=== PATIENT | female | born 1990 | race Caucasian/White ===

== ENCOUNTER 2018-04-29 11:03 | Emergency (ER) | payer SELFPAY ==
[~2018-04-29] VITALS: Ht 167.6 cm; Wt 122.7 kg
[2018-04-29 11:14] VITALS: TEMP 98.8
[2018-04-29 12:02] LABS: BASO # 0.1 (0.0-0.2); BASO % 0.7 % (0.0-2.0); EOS # 0.3 (0.0-0.7); EOS % 1.9 % (0-4.0); GRAN # 9.5 (1.4-6.5); GRAN % 71.8 % (42.2-75.2); HEMATOCRIT 38.2 % (37.0-47.0); HEMOGLOBIN 12.5 g/dl (12.5-16.0); LYMPH # 2.4 (1.2-3.4); LYMPH % 17.9 % (20.0-51.0); MEAN CELL VOLUME 89 fl (80.0-100.0); MEAN CORPUSCULAR HEMOGLOBIN 29 pg (27.0-31.0); MEAN CORPUSCULAR HGB CONC 33 g/dl (33.0-37.0); MEAN PLATELET VOLUME 9.8 fl (7.4-10.4); MONO # 0.8 (0.1-0.6); MONO % 6.3 % (1.7-9.3); PLATELET COUNT 251 K/mm3 (130-400); REDCELL DISTRIBUTION WIDTH-CV 14.7 % (11.5-14.5)
[2018-04-29 12:09] LABS: ALBUMIN 3.5 gm/dL (3.5-5.0); BILIRUBIN,TOTAL 0.2 mg/dL (0.0-1.0); CALCIUM 9.1 mg/dL (8.4-10.2); CREATININE, serum 0.79 mg/dL (0.52-1.25); POTASSIUM 3.9 mmol/L (3.4-5.0); TOTAL PROTEIN 6.9 gm/dL (6.4-8.2)
[2018-04-29] MEDS ORDERED: LAMICTAL 100MG100 MG PO (12:32)
[2018-04-29] MEDS ORDERED: TOPAMAX50 MG PO (12:32)
[2018-04-29] MEDS ORDERED: WELLBUTRIN 100100 MG PO (12:33)
[2018-04-29] MEDS ORDERED: BUSPAR 30MG30 MG/TAB PO (12:33)
[2018-04-29] MEDS ORDERED: DESYREL DIVIDO150 M1 PO (12:33)
[2018-04-29] MEDS ORDERED: PRINIVIL20 MG PO (12:34)
[2018-04-29] MEDS ORDERED: RISPERDAL 1M1 MG/TAB PO (12:34)
[2018-04-29] MEDS ORDERED: LEVBID0.375 MG PO (12:36)
[2018-04-29] MEDS ORDERED: ZITHROMAX TRI-500 MG PO (13:49)
[2018-04-29] MEDS ORDERED: BENTYL 20MG20 MG/TAB PO (13:52)
[2018-04-29 13:57] VITALS: BP 124/67; PULSE 84
== END 2018-04-29 13:58 | disposition home or self-care (01) ==
LOC: COL.ER 11:03
PROVIDERS: Emergency Medicine
DX: R19.7 Diarrhea, unspecified (principal); I10 Essential (primary) hypertension; F31.9 Bipolar disorder, unspecified
CPT/HCPCS: J2405; J7030

== ENCOUNTER 2018-05-01 16:40 | Emergency (ER) | payer SELFPAY ==
[~2018-05-01] VITALS: Ht 167.6 cm; Wt 122.7 kg
[~2018-05-01 16:40] MED LIST: BENTYL 20MG20 MG/TAB PO; BUSPAR 30MG30 MG/TAB PO; DESYREL DIVIDO150 M1 PO; LAMICTAL 100MG100 MG PO; LEVBID0.375 MG PO; PRINIVIL20 MG PO; RISPERDAL 1M1 MG/TAB PO; TOPAMAX50 MG PO; WELLBUTRIN 100100 MG PO; ZITHROMAX TRI-500 MG PO
[2018-05-01 16:49] VITALS: TEMP 97.3
[2018-05-01 17:36] LABS: BASO # 0.1 (0.0-0.2); BASO % 0.6 % (0.0-2.0); EOS # 0.4 (0.0-0.7); GRAN # 9.8 (1.4-6.5); GRAN % 69.6 % (42.2-75.2); HEMATOCRIT 42.5 % (37.0-47.0); HEMOGLOBIN 13.5 g/dl (12.5-16.0); LYMPH # 2.7 (1.2-3.4); LYMPH % 18.8 % (20.0-51.0); MEAN CELL VOLUME 91 fl (80.0-100.0); MEAN CORPUSCULAR HEMOGLOBIN 29 pg (27.0-31.0); MEAN CORPUSCULAR HGB CONC 32 g/dl (33.0-37.0); MEAN PLATELET VOLUME 9.6 fl (7.4-10.4); MONO % 7.2 % (1.7-9.3); PLATELET COUNT 277 K/mm3 (130-400); RED BLOOD COUNT 4.68 M/mm3 (4.10-5.30); REDCELL DISTRIBUTION WIDTH-CV 14.6 % (11.5-14.5)
[2018-05-01 17:47] LABS: ALBUMIN 4.1 gm/dL (3.5-5.0); BILIRUBIN,TOTAL 0.1 mg/dL (0.0-1.0); CALCIUM 9.4 mg/dL (8.4-10.2); CREATININE, serum 0.67 mg/dL (0.52-1.25); POTASSIUM 3.8 mmol/L (3.4-5.0); TOTAL PROTEIN 7.5 gm/dL (6.4-8.2)
[2018-05-01] MEDS ORDERED: PREDNISONE20 MG PO (18:49)
[2018-05-01 18:59] VITALS: BP 127/88; PULSE 98
[2018-05-01] MEDS ORDERED: ZOFRAN ODT4 MG PO (19:00)
== END 2018-05-01 16:59 | disposition home or self-care (01) ==
LOC: COL.ER 16:40
PROVIDERS: Emergency Medicine
DX: K58.9 Irritable bowel syndrome, unspecified (principal); I10 Essential (primary) hypertension
CPT/HCPCS: J7512

== ENCOUNTER → 2018-05-21 | Outpatient (CLI) | payer SELFPAY ==
[~2018-05-21] MED LIST changes: +PREDNISONE20 MG PO; +ZOFRAN ODT4 MG PO
[2018-05-24 15:44] LABS: OVA AND PARASITE XXX; TRICHROME STAIN XXX
== END ==
LOC: ZCOL.LAB 13:04
PROVIDERS: Physician Assistant
DX: K58.9 Irritable bowel syndrome, unspecified (principal)

== ENCOUNTER 2018-05-31 08:15 | Day surgery (SDC) | payer SELFPAY ==
[~2018-05-31] VITALS: Ht 167.6 cm; Wt 122.7 kg
[2018-05-31] MEDS ORDERED: ATIVAN 0.50.5 MG/TAB PO (08:28)
[2018-05-31 08:49] VITALS: BP 143/80; PULSE 98; TEMP 97.6
[2018-05-31 10:25] VITALS: BP 148/94; PULSE 106; TEMP 97.8
--- NOTE | 2018-05-31 10:25 | NUR ---
Pt to [facility] via cart from ENDO. Pt awake and alert. Denies pain or nausea. Pepsi given per pt request. Will continue to moniotr. Call light within reach. Friend in room.
[2018-05-31 10:40] VITALS: BP 142/106; PULSE 98
--- NOTE | 2018-05-31 10:40 | NUR ---
Pt tolerating po fluids without difficulties. Will continue to moniotor. Call light within reach.
[2018-05-31 10:55] VITALS: BP 118/94; PULSE 96
--- NOTE | 2018-05-31 10:55 | NUR ---
Discharge instructions reviewed. Pt voices understanding. IV site discontinued with all parts intact. Pt up to dress. Call light within reach.
--- NOTE | 2018-05-31 11:15 | NUR ---
Pt escorted to private car via wheel chair. Pt accompanied home by her friend.
== END 2018-05-31 11:15 | disposition home or self-care (01) ==
LOC: SDCO 08:15
DX: K21.0 Gastro-esophageal reflux disease with esophagitis (principal); K29.30 Chronic superficial gastritis without bleeding; K92.1 Melena; K58.0 Irritable bowel syndrome with diarrhea; F41.9 Anxiety disorder, unspecified; E66.01 Morbid (severe) obesity due to excess calories; Z68.41 Body mass index [BMI] 40.0-44.9, adult
CPT/HCPCS: J2250; J2405; J3010; J7030

== ENCOUNTER 2018-06-21 12:43 | Emergency (ER) | payer SELFPAY ==
[~2018-06-21] VITALS: Ht 167.6 cm; Wt 123.5 kg
[~2018-06-21 12:43] MED LIST changes: +ATIVAN 0.50.5 MG/TAB PO
[2018-06-21 12:52] VITALS: BP 141/81; TEMP 100
[2018-06-21] MEDS ORDERED: ATIVAN 0.50.5 MG/TAB PO (13:33)
[2018-06-21 13:50] VITALS: PULSE 84
== END 2018-06-21 13:51 | disposition home or self-care (01) ==
LOC: COL.ER 12:43
DX: Z76.0 Encounter for issue of repeat prescription (principal); F41.9 Anxiety disorder, unspecified; F31.9 Bipolar disorder, unspecified; G47.00 Insomnia, unspecified; K58.9 Irritable bowel syndrome, unspecified